=== PATIENT | female | born 1975 | race Caucasian/White ===

== ENCOUNTER 2016-06-29 05:36 | Day surgery (SDC) | payer OTHER ==
[2016-06-28 15:24] VITALS: BMI 30.4
[~2016-06-29] VITALS: Ht 167.6 cm; Wt 84.0 kg
[2016-06-29] VITALS (15 sets, daily range): BP systolic 114–136; BP diastolic 60–74; PULSE 55–68; RESP 14–23; Ht 167.6 cm; Wt 84.0 kg
--- NOTE | 2016-06-29 05:15 | PREOPHP ---
DATE OF ADMISSION: 06/29/2016 HISTORY OF PRESENT ILLNESS: This is a 41-year-old lady, 5, para 1 with 3 spontaneous aborti ons and one therapeutic . Her last normal menstrual period was few days prior to admission. She was admitted for D and C, hysteroscopy, possible suction curettage. This patient at times ble eds heavy with her periods. The ultrasound showed endometrial thickening of 1.5 cm thickened endome trium with possible lower uterine segment polyp. Because of such, she was offered to go for endomet rial biopsy, but the patient declined. She wanted to go for D and C. She had been trying to get pre gnant for the last 1 year as well. PAST PERSONAL HISTORY: No history of diabetes, TB, asthma. ALLERGIES: NO ALLERGIES. SOCIAL HISTORY: Patient does not smoke. She does not drink. MEDICATIONS: She takes Synthroid for her hypothyroidism. GYNECOLOGICAL HISTORY: She had menarche at age of 12, every 28 days' interval, 3 to 4 days' duratio n, and moderate in amount. FAMILY HISTORY: Grandmother had cancer. PAST SURGICAL HISTORY: She had neck surgery in 1999. REVIEW OF SYSTEMS: GENERAL: She had one normal delivery. CARDIOVASCULAR: No chest pains. RESPIRATORY: No cough. GASTROINTESTINAL: No diarrhea, no vomiting. GENITOURINARY: No dysuria. PHYSICAL EXAMINATION: GENERAL: Reveals a conscious coherent lady and in no acute distress. VITAL SIGNS: Her blood pressure 120/80, pulse rate 80 per minute, respirations 16 per minute. BREASTS, HEART AND LUNGS: Within normal limits. ABDOMEN: Soft. No organomegaly and moderately obese. PELVIC: Revealed the cervix to be firm, uterus of normal size, and adnexa were negative for masses. RECTAL: Confirmed the pelvic findings. EXTREMITIES: No pedal edema. ASSESSMENT AND PLAN: Rule out endometrial hyperplasia, rule out endometrial polyp and menorrhagia, fibroid uterus. The patient was planned to have the above procedure D and C, hysteroscopy, possible suction curettage. As mentioned, procedures were explained to her and she understood everything to tally. The risks, benefits, alternatives were discussed with her as well. She refused to go for an endometrial biopsy. Dictated By: LOLA MARTIN/MICHAEL Conf#: [id number] DID#: [id number]
[~2016-06-29 05:36] MED LIST: FOLI-49 PO; PREN1TAB49 PO
[2016-06-29] MEDS ORDERED: LEVO88TA42 PO (07:51)
[2016-06-29] MEDS ORDERED: FENTAnyl 50 MCG/ML VIAL IV PRN ×2 (09:00)
[2016-06-29] MEDS ORDERED: ATROPINE 1 MG/10 ML SYRINGE IV PRN (09:00)
[2016-06-29] MEDS ORDERED: DIPHENHYDRAMINE 50 MG INJ IV PRN (09:00)
[2016-06-29] MEDS ORDERED: OXYCODONE/ACETAMINOPHEN (5/325) TAB PO PRN ×2 (09:00)
[2016-06-29] MEDS ORDERED: hydrALAzine 20 MG INJ IV PRN (09:00)
[2016-06-29] MEDS ORDERED: ONDANSETRON 4 MG INJ IV PRN (09:00)
[2016-06-29] MEDS ORDERED: MIDAZOLAM 1 MG/ML 2 ML INJ IV PRN (09:00)
[2016-06-29] MEDS ORDERED: morphine (1 MG/ML) 10ML SYRINGE IV PRN ×3 (09:00)
[2016-06-29] MEDS ORDERED: LABETALOL HCL 20MG INJ IV PRN (09:00)
[2016-06-29] MEDS ORDERED: MEPERIDINE 25 MG INJ IV PRN (09:00)
[2016-06-29] MEDS ORDERED: EPHEDrine SULFATE 50 MG/5 ML SYG IV PRN (09:00)
[2016-06-29] MEDS ORDERED: HYDROmorphONE (0.2 MG/ML) 10ML SYG IV PRN ×3 (09:00)
[2016-06-29] MEDS ORDERED: MIDAZOLAM 1 MG/ML 2 ML INJ ONE (09:02)
[2016-06-29] MEDS ORDERED: GLYCOPYRROLATE 0.4 MG INJ ONE (09:02)
[2016-06-29] MEDS ORDERED: FENTAnyl 50 MCG/ML VIAL ONE (09:02)
[2016-06-29] MEDS ORDERED: ROCURONIUM 50 MG INJ ONE (09:02)
[2016-06-29] MEDS ORDERED: LIDOCAINE 2% (SDV) 5 ML INJ ONE (09:02)
[2016-06-29] MEDS ORDERED: PROPOFOL 20 ML ONE ×2 (09:02→09:03)
[2016-06-29] MEDS ORDERED: NEOSTIGMINE 3 MG/3 ML SYRINGE ONE (09:02)
[2016-06-29] MEDS ORDERED: CEFAZOLIN 1 GM INJ ONE (09:04)
[2016-06-29] MEDS ORDERED: ONDANSETRON 4 MG INJ ONE (09:05)
[2016-06-29] MEDS ORDERED: DEXAMETHASONE 4 MG/ML 1 ML INJ ONE (09:05)
[2016-06-29] MEDS ORDERED: FLUMAZENIL 0.5 MG INJ ONE (09:45)
[2016-06-29] MEDS ORDERED: LIDOCAINE 4% CR ONE (11:28)
--- NOTE | 2016-07-01 05:23 | OPR ---
DATE OF OPERATION: 06/29/2016 PREOPERATIVE DIAGNOSES: 1. Endometrial thickening. 2. Possible endometrial polyp 3. Menorrhagia. POSTOPERATIVE DIAGNOSIS: Pending pathology report. SURGEON: Lola Jacob MD CONVOLUTE TUBE WINDER: Mary Alice cordoba. ANESTHESIA: General. OPERATION PERFORMED: Fractional D and C, hysteroscopy, and suction curettage. OPERATIVE TECHNIQUE: Under general anesthesia, the patient was prepped and draped in the usual [facility] ion for vaginal surgery. Pelvic exam under anesthesia revealed the cervix to be firm, uterus of nor mal size, and adnexa negative for masses. Then, the heavy weighted vaginal retractor was put in mariela ce, and the anterior lip of the cervix was grasped with an Allis clamp. Endocervical dilatation up to Hegar 6 was proceeded. Uterus was sounded to about 3 inches. Then the hysteroscope was inserted inside the uterine cavity and connected with a light source and with normal saline. The uterus was distended with normal saline. There were no polyps. There were nor fibroids seen. Endocervical c urettage was performed, and small amount of tissue was obtained. Endometrial curettage was performe d, and a good amount of tissue was obtained. Suction tip size 7 was inserted inside the uterine cav ity, and suction curettage was done. A good amount of tissue was obtained. The uterus was intact d uring and after the procedure. The patient tolerated the procedure well. Estimated blood loss was minimal. Vital signs were stable during and after the procedure. Dictated By: LOLA MRATIN/MICHAEL Conf#: [id number] DID#: [id number]
== END 2016-06-29 11:30 | disposition home or self-care (01) ==
LOC: SDS 05:36
PROVIDERS: ATTEND Obstetrics & Gynecology
DX: N92.0 Excessive and frequent menstruation with regular cycle (principal)
CPT/HCPCS: 58558; 84703; 86850; 86900; 86901; 88305; J0690; J1100; J2250; J2405; J2710; J3010; Z7512; Z7610